=== PATIENT | male | born 1975 | race Caucasian/White ===

== ENCOUNTER 2017-09-27 07:32 | Day surgery (SDC) | payer OTHER ==
[2017-09-27 08:15] VITALS: BMI 25.2
[2017-09-27 08:23] VITALS: TEMP 97.8
[2017-09-27] MEDS ORDERED: Propofol 10 mg/ml Inj (20 ML) ONE ×3 (09:31→09:58)
[2017-09-27] MEDS ORDERED: Lidocaine Hydrochloride 5 ML INJ ONE (09:58)
[2017-09-27 10:49] VITALS: BP 108/71; PULSE 70; RESP 13; O2SAT 98
== END 2017-09-27 11:00 | disposition home or self-care (01) ==
LOC: C.ENDO 07:32
PROVIDERS: ATTEND Internal Medicine
DX: K52.9 Noninfective gastroenteritis and colitis, unspecified (principal); R10.9 Unspecified abdominal pain; Z86.19 Personal history of other infectious and parasitic diseases; K57.30 Diverticulosis of large intestine without perforation or abscess without bleeding; K64.8 Other hemorrhoids
CPT/HCPCS: 45380; 88305; J2704